=== PATIENT | male | born 1950 | race African-American/Black ===

== ENCOUNTER → 2020-04-29 02:50 | Outpatient (CLI) | payer OTHER, SELFPAY ==
[2020-04-29 21:05] LABS: SARS-CoV-2 RNA PCR Negative
== END ==
PROVIDERS: PCP Family Medicine; Visit Provider Urology
DX: Z01.812 Encounter for preprocedural laboratory examination (principal); Z20.822 Contact with and (suspected) exposure to COVID-19
CPT/HCPCS: C9803; U0003; U0005

== ENCOUNTER 2020-04-29 12:46 | Outpatient (CLI) | payer OTHER, SELFPAY ==
[2020-04-29 10:37] LABS: Anion Gap 4 mmol/L (8-16); Blood Urea Nitrogen 12 mg/dL (9-20); Calcium 8.8 mg/dL (8.4-10.2); Carbon Dioxide 29 mmol/L (22-30); Chloride 106 mmol/L (98-107); Estimated Glomerular Filt Rate > 60; Glucose 122 mg/dL (75-110); Potassium 3.8 mmol/L (3.4-5.0); Sodium 139 mmol/L (137-145)
--- NOTE | 2020-04-29 11:30 | ECG_ITS ---
Measurements Intervals [place] Rate: 66 P: 49 RI: 213 QRS: 11 QRSD: 105 T: 39 QT: 399 QTc: 418 Interpretive Statements SINUS RHYTHM WITH FIRST DEGREE AV BLOCK ATRIAL PREMATURE COMPLEX CONSIDER INFERIOR INFARCT, AGE INDETERMINATE ABNORMAL ECG Electronically Signed On 04-29-2020 10:52:44 CDT by Benito Isaac D.O.
== END 2020-04-29 12:47 ==
LOC: ANHSURGERY 05-23 12:46
PROVIDERS: Anesthesiology; PCP Family Medicine; Visit Provider Urology
DX: Z79.899 Other long term (current) drug therapy (principal); I10 Essential (primary) hypertension; Z01.818 Encounter for other preprocedural examination; I44.0 Atrioventricular block, first degree
CPT/HCPCS: 36415; 80048; 93005

== ENCOUNTER 2020-05-02 01:18 | Day surgery (SDC) | payer OTHER, SELFPAY ==
--- NOTE | 2020-04-24 10:03 | PM.HPGS ---
History of Present Illness History of Present Illness Consent: Risks, benefits, and alternatives have been discussed and questions answered. Patient agrees to proceed with procedure. Chief complaint: Prostate CA Narrative: Tariq Summers is a 70 year old male who is a patient of Dr. Zhang Muse that recently presented with a PSA of 8.6ng/dl. He was diagnosed with clinically localized adenocarcinoma of the prostate and is scheduled for definitive pelvic IMRT. He's opted for placement of SpaceOAR to minimize risk of rectal irritation. Review of Systems Cardiovascular: Cardiovascular: Denies chest pain, Denies lightheadedness, Denies palpitations and Denies dyspnea Respiratory: Respiratory: Denies dyspnea Gastrointestinal: Gastrointestinal: Denies diarrhea, Denies nausea and Denies vomiting Genitourinary: Genitourinary: Denies hematuria and Denies dysuria Endocrine: Endocrine: Denies palpitations Exam Const: General: no acute distress Resp: Effort & Inspection: normal respiratory effort GI: Inspection: non-distended GI Palp: No abdominal tenderness and No Guarding due to palpation present (GI) Auscultation: normal bowel sounds Assessment and Plan Assessment and plan (1) Prostate cancer: Code(s): C61 - Malignant neoplasm of prostate Status: Acute Assessment and Plan: Transrectal ultrasound with transperineal placement of SpaceOAR. Pt. aware of risks of this procedure including, but not limited to, rectal injury, urinary tract infection with possible sepsis or septic shock, hematuria and inability to deliver the SpaceOAR. He also aware there is no alternative procedure to accomplish the same ends at this time.
[2020-04-25 12:28] VITALS: BMI 40.9
--- NOTE | 2020-05-01 08:50 | WPDANESEPPF ---
Anes - Initial Pre Proc Eval Procedure: Operation Date: 05/02/20 12:00 Proposed Procedures p Insertion SpaceOAR Hydrogel System - Gómez Mc MD Date/Time: 05/01/20 08:50 Surgeon: Gómez Mc MD Pre Op Diagnosis: Prostate CA Patient Data Age: 70 Gender: M Height: 1.78 m Weight: 129.54 kg Allergies Allergy/AdvReac Type Severity Reaction Status Date / Time No Known Allergies Allergy Verified 05/02/20 09:51 Home Medications Medication Instructions Recorded Confirmed Type hydrochlorothiazide 12.5 mg PO DAILY 04/25/20 04/25/20 History losartan 100 mg DAILY 04/25/20 04/25/20 History nebivolol [Bystolic] 10 mg DAILY 04/25/20 05/02/20 History valacyclovir 500 mg PRN PRN 04/25/20 04/25/20 History Patient hx anesthesia problems: none Family hx anesthesia problems: none [facility] Past Medical History Medical History (Updated 05/01/20 @ 08:50 by Linus Grayson DO) Hypertension Prostate cancer Social History Social History Smoking status: Never smoker Second hand tobacco smoke exposure: No Alcohol intake: never Substance use: never Substance use type: does not use Living arrangements: alone Spiritual care concerns: No Anes - Eval Final PreProcedure Day of Procedure 05/01/20 08:50 Patient weight: morbidly obese Heart: regular rate and rhythm Lungs: clear to auscultation and normal air movement Airway: Mallampati scale class II Neurological: alert and oriented Last oral intake: >/= 8 hours ASA classification: III Emergent: no Anesthetic plan: proceed Anesthesia type and monitoring: general LMA and standard monitoring Informed Consent: The patient's anesthetic plan and its attendant risks and benefits were discussed with the patient/family/POA. Questions were solicited and answers provided to the satisfaction of the patient/family/POA.
[2020-05-02] MEDS: LACTATED RINGERS 1,000 ML 30 ML IV CONT (10:15)
[2020-05-02 10:30] VITALS: BP 166/97; PULSE 68; RESP 16; TEMP 36.6; O2SAT 100
--- NOTE | 2020-05-02 12:00 | SUR.PREOP ---
PT MADE AWARE THAT CASE DELAY ABOUT 1HR R/T PREV CASE DELAYS. VERBALIZES UNDERSTANDING.
== END 2020-05-02 12:30 | disposition home or self-care (01) ==
PROVIDERS: PCP Family Medicine; Visit Provider Urology
DX: C61 Malignant neoplasm of prostate (principal); I10 Essential (primary) hypertension; E66.9 Obesity, unspecified; Z68.36 Body mass index [BMI] 36.0-36.9, adult; Z53.9 Procedure and treatment not carried out, unspecified reason
CPT/HCPCS: 99212; A9270; G0463; J7120

== ENCOUNTER → 2020-05-13 01:57 | Outpatient (CLI) | payer OTHER, SELFPAY ==
[2020-05-13 20:13] LABS: SARS-CoV-2 RNA PCR Negative
== END ==
PROVIDERS: PCP Family Medicine; Visit Provider Urology
DX: Z01.812 Encounter for preprocedural laboratory examination (principal); Z20.822 Contact with and (suspected) exposure to COVID-19
CPT/HCPCS: C9803; U0003; U0005

== ENCOUNTER 2020-05-16 02:52 | Day surgery (SDC) | payer OTHER, SELFPAY ==
[2020-05-09 11:11] VITALS: BMI 41.1
--- NOTE | 2020-05-16 06:59 | WPDHPUPDATE1 ---
History and Physical Update Update Date/Time: 05/16/20 06:59 History and Physical has been reviewed, including an updated exam of the patient. There are NO changes in the patient's condition. Risks, benefits, and alternatives have been discussed and questions answered. Patient agrees to proceed with procedure.
[2020-05-16 12:03] VITALS: BP 152/95; PULSE 68; RESP 16; TEMP 36.6; O2SAT 100
[2020-05-16] MEDS: LACTATED RINGERS 1,000 ML 30 ML IV CONT (12:21)
--- NOTE | 2020-05-16 12:47 | P.PNAN_ITS ---
Anes - Initial Pre Proc Eval Procedure: Operation Date: 05/16/20 13:45 Proposed Procedures p Insertion SpaceOAR Hydrogel System - Gómez Mc MD Date/Time: 05/16/20 12:47 Surgeon: Gómez Mc MD Pre Op Diagnosis: Prostate CA Patient Data Age: 70 Gender: M Height: 5 ft 10 in Weight: 115.2 kg Last Vital Signs Temp 98 F 05/16/20 12:03 Pulse 68 05/16/20 12:03 Resp 16 05/16/20 12:03 BP 152/95 H 05/16/20 12:03 Pulse Ox 100 05/16/20 12:03 Allergies Allergy/AdvReac Type Severity Reaction Status Date / Time No Known Allergies Allergy Verified 05/16/20 11:54 Home Medications Medication Instructions Recorded Confirmed Type hydrochlorothiazide 12.5 mg PO DAILY 04/25/20 05/16/20 History nebivolol [Bystolic] 10 mg PO QAM 04/25/20 05/16/20 History valacyclovir 500 mg PO PRN PRN 04/25/20 05/16/20 History losartan 100 mg PO QAM 05/09/20 05/16/20 History Patient hx anesthesia problems: none Family hx anesthesia problems: none [facility] Past Medical History Medical History (Updated 05/01/20 @ 08:50 by Linus Grayson DO) Hypertension Prostate cancer Social History Social History Smoking status: Never smoker Second hand tobacco smoke exposure: No Alcohol intake: never Substance use: never Substance use type: does not use Living arrangements: alone Spiritual care concerns: No Anes - Eval Final PreProcedure Day of Procedure 05/16/20 12:47 Patient weight: obese Heart: regular rate and rhythm Lungs: clear to auscultation Airway: Mallampati scale class II Neurological: alert and oriented Last oral intake: >/= 8 hours ASA classification: III Emergent: no Anesthetic plan: proceed Anesthesia type and monitoring: general LMA and standard monitoring Informed Consent: The patient's anesthetic plan and its attendant risks and benefits were discussed with the patient/family/POA. Questions were solicited and answers provided to the satisfaction of the patient/family/POA.
[2020-05-16] MEDS: ceFAZolin 3 GM/D5W 100 ML 100 ML IVPB (13:55)
[2020-05-16 14:22] VITALS: BP 146/79; PULSE 66; RESP 18; TEMP 36.2; O2SAT 98
[2020-05-16 14:34] VITALS: BP 154/96; PULSE 63; RESP 20; O2SAT 97
--- NOTE | 2020-05-16 14:40 | SUR.PHASEI ---
O2 removed at 1440.
[2020-05-16 14:50] VITALS: BP 155/103; PULSE 63; RESP 20; O2SAT 95
--- NOTE | 2020-05-16 14:56 | PM.PROC ---
Procedure Note - Detailed Date of procedure: 05/16/20 Pre-op diagnosis: Prostate CA Post-op diagnosis: same Procedure performed: SpaceOAR Description of procedure: This patient has been diagnosed with prostate cancer. Patient has met with a radiation oncologist who has prescribed a course of radiation for treatment of the malignancy. Please refer to the Radiation Oncologist's note for radiation method, dose, number of fractions. After discussing with the radiation oncologist and the patient, it has been agreed upon to proceed with SpaceOAR placement. The purpose of SpaceOAR is to reduce rectal irradiation during radiation therapy by placing an absorbable polyethylene glycol (PEG) hydrogel (SpaceOAR) into perirectal fat space, thereby pushing the rectum away from the prostate. Prior to the procedure, a timeout was performed confirming the patient's identity and planned the procedure. Anesthesia was induced without complication. Antibiotics were administered prophylactically, and the patient completed an enema at home prior to the procedure. The patient was positioned in the dorsal lithotomy position. A transrectal ultrasound probe was inserted per rectum with clear visualization of the prostatic base and apex. SpaceOAR hydrogel was prepared as described in the cleaning crew member?s 'Instructions For Use'. Under transrectal ultrasound guidance, a 15 cm 18G needle was inserted, transperineal, through the rectourethralis muscle and the needle tip advanced into the perirectal fat posterior to the prostate. The needle position, and downward bevel, were confirmed in both sagittal and axial bonilla. 3-5cc of Sterile Saline was used to hydro-dissect the space between the Denonvilliers? fascia and anterior rectal wall. Aspiration did not yield any bleeding. With the needle tip at mid gland, the axial field was viewed to confirm the needle was not in the rectal wall -- movement of the needle tip without corresponding movement of the rectal wall confirmed perirectal placement. The assembled SpaceOAR delivery system was then attached to the 18G needle. Under ultrasound guidance in the sagittal plane, a smooth, continuous injection technique was used to dispense all 10cc of the SpaceOAR hydrogel into the space between the prostate and rectum. Optimal visualization of the needle during hydrogel administration was maintained at all times. An axial measurement of the space between the prostate (mid gland) and rectum immediately post-SpaceOAR injection was noted and measured [92mm]. No suspected penetration or compromise of the rectal wall occurred. Surgeon: Gómez Mc MD Estimated blood loss (mL): 0 Drains: No Packing: No Pathology: none sent Complications: No immediate complications Condition: stable Disposition: PACU
[2020-05-16 15:10] VITALS: BP 164/92; PULSE 62
[2020-05-16 15:40] VITALS: BP 171/95; PULSE 62
== END 2020-05-16 15:48 | disposition home or self-care (01) ==
PROVIDERS: PCP Family Medicine; Visit Provider Urology
PROC: (CPT 55874; principal; 2020-05-16 13:45)
DX: C61 Malignant neoplasm of prostate (principal); I10 Essential (primary) hypertension; E66.9 Obesity, unspecified; Z68.36 Body mass index [BMI] 36.0-36.9, adult
CPT/HCPCS: 55874; A9270; C1889; C9803; J0690; J1100; J2405; J2704; J3010; J7120; U0003; U0005